=== PATIENT | female | born 1965 | race Caucasian/White ===

== ENCOUNTER 2021-09-04 04:56 | Emergency (ER) | payer OTHER ==
[~2021-09-04 04:56] MED LIST: GABAPENTIN400 MG PO; HYDROCHLOROTHIA25 MG PO; MOBIC15 MG PO; TOPAMAX25 MG PO; TRAZODONE HCL150 MG PO; ULTRAM50 MG PO; VITAMIN D250000 UNIT PO; ZANTAC150 MG PO
[2021-09-04] MEDS ORDERED: ZYRTEC10 MG PO (05:38)
[2021-09-04] MEDS ORDERED: ELIMITE 5% CREA60 GM TOP (05:38)
== END 2021-09-04 05:56 | disposition home or self-care (01) ==
LOC: ER1 04:56
DX: R21 Rash and other nonspecific skin eruption (principal); F17.200 Nicotine dependence, unspecified, uncomplicated; I10 Essential (primary) hypertension
CPT/HCPCS: 99282